=== PATIENT | female | born 1975 | race African-American/Black ===

== ENCOUNTER 2022-03-15 15:56 | Emergency (ER) | payer MEDICAID ==
[~2022-03-15] VITALS: Ht 170.2 cm; Wt 75.0 kg
[2022-03-15 16:02] VITALS: BP 153/78
[2022-03-15] MEDS ORDERED: ONDANSETRON 4MG ODT PO ONE (19:45)
[2022-03-15] MEDS ORDERED: ASPIRIN 81MG TABLET PO ONE (19:45)
[2022-03-15] MEDS ORDERED: ACETAMINOPHEN 325MG TABLET PO ONE (19:45)
[2022-03-15 20:39] LABS: BASOPHILS % 0.7 % (0.0-2.0); EOSINOPHILS % 0.2 % (0.0-5.0); HEMOGLOBIN. 13.5 g/dL (12.0-16.0); LYMPHOCYTES % 23.4 % (20.0-50.0); MEAN CORPUSCULAR VOLUME 88.3 fL (81.0-99.0); MONOCYTES % 5.9 % (2.0-8.0); NEUTROPHILS % 69.8 % (40.0-76.0); PLATELET 283 x1000/uL (130-400); RED BLOOD CELL COUNT 4.64 mill/uL (4.2-5.4); RED CELL DISTRIBUTION WIDTH 14.4 % (11.6-14.6)
[2022-03-15 20:45] LABS: CHLORIDE 107 mEq/L (98-107)
[2022-03-15 20:56] LABS: B-HCG QUANTITATIVE < 1 mIU/mL (<3)
[2022-03-16 00:13] LABS: CLARITY URINE CLEAR (CLEAR); COLOR URINE YELLOW (YELLOW); KETONES URINE 2+ (NEGATIVE); LEUKOCYTE ESTERASE URINE NEGATIVE (NEGATIVE); NITRITE URINE NEGATIVE (NEGATIVE); OCCULT BLOOD URINE 2+ (NEGATIVE); PH URINE 5.5 (4.5-8.0); PROTEIN URINE NEGATIVE (NEGATIVE); SPECIFIC GRAVITY URINE 1.009 (1.005-1.030); UROBILINOGEN URINE 0.2 E.U./dL (0.2-1.0)
[2022-03-16] MEDS ORDERED: ASPIRIN 81MG TABLET PO NR (00:15)
[2022-03-16] MEDS ORDERED: ONDANSETRON 4MG ODT PO NR (00:15)
[2022-03-16] MEDS ORDERED: ACETAMINOPHEN 325MG TABLET PO NR (00:15)
== END 2022-03-16 12:31 | disposition home or self-care (01) ==
LOC: ER 15:56
DX: R10.13 Epigastric pain (principal); I10 Essential (primary) hypertension; Z20.822 Contact with and (suspected) exposure to COVID-19; Z90.710 Acquired absence of both cervix and uterus; Z88.0 Allergy status to penicillin
CPT/HCPCS: 36415; 71045; 74176; 80053; 81003; 83690; 84484; 84702; 85025; 87426; 87804; 93005; 99285; C9803; Q0162; Z7610